=== PATIENT | male | born 1985 | race African-American/Black ===

== ENCOUNTER 2017-02-04 16:00 | Observation (INO) | payer MEDICAID ==
[~2017-02-04] VITALS: Ht 167.6 cm; Wt 84.9 kg
[2017-02-04] MEDS ORDERED: ASPIRIN 81 MG TABLET CHEW PO ONE (16:30)
[2017-02-04] MEDS ORDERED: KETOROLAC 30 MG/1 ML IM ONE (16:30)
[2017-02-04 16:57] LABS: HEMATOCRIT 44.3 % (39.2-51.8); HEMOGLOBIN 14.9 g/dL (13.7-18.0); WHITE BLOOD COUNT 6.6 x10^3/uL (3.4-10)
[2017-02-04 17:10] LABS: IS PT STATUS REG ER OR PRE ER? YES
[2017-02-04] MEDS ORDERED: ARIP10TA33 PO (17:20)
[2017-02-04] MEDS ORDERED: DIVA500T2 PO (17:20)
[2017-02-04 17:23] LABS: ASPARTATE AMINO TRANSFERASE 20 U/L (15-37); BLOOD UREA NITROGEN 12 mg/dL (7-18)
[2017-02-04 17:29] LABS: ACETAMINOPHEN < 2 mcg/mL (10-30)
[2017-02-04] MEDS ORDERED: KETOROLAC 30 MG/1 ML ONE (17:42)
[2017-02-04] MEDS ORDERED: ASPIRIN 81 MG TABLET CHEW ONE (17:42)
[2017-02-04] MEDS ORDERED: ACETAMINOPHEN 325 MG TABLET PO PRN (18:30)
[2017-02-04] MEDS ORDERED: LORazepam 1MG TABLET PO PRN (18:30)
[2017-02-04] MEDS ORDERED: ARIPIPRAZOLE 15 MG TABLET PO SCH (18:30)
[2017-02-04] MEDS ORDERED: ONDANSETRON ODT 4 MG PO PRN (18:30)
[2017-02-04] MEDS ORDERED: DIVALPROEX 500 MG TAB.ER.24H PO SCH (18:30)
[2017-02-04] MEDS ORDERED: ZIPRASIDONE 20 MG INJ IM PRN (18:30)
[2017-02-04 18:49] LABS: DAU SCREEN DISCLAIMER
[2017-02-04 19:40] VITALS: BP 102/63
[2017-02-04] MEDS ORDERED: ZIPRASIDONE 20MG CAPSULE PO SCH (21:00)
[2017-02-05 07:52] VITALS: BP 110/73
[2017-02-05] MEDS ORDERED: DIVALPROEX 500 MG TABLET.DR PO SCH (09:00)
[2017-02-05] MEDS ORDERED: ARIPIPRAZOLE 10 MG TABLET PO SCH (09:00)
[2017-02-05 18:55] VITALS: BP 122/80
[2017-02-06 07:30] VITALS: BP 112/78
[2017-02-06 19:04] VITALS: BP 122/79
== END 2017-02-06 19:37 ==
LOC: ED 17:13 → EDIP 17:14 → ED 17:36 → 3E 19:30
PROVIDERS: ADMIT Internal Medicine; ATTEND Internal Medicine
DX: R45.851 Suicidal ideations (principal); F23 Brief psychotic disorder; R44.0 Auditory hallucinations; G89.29 Other chronic pain; Z91.5 Personal history of self-harm
CPT/HCPCS: 36415; 71020; 80053; 80307; 80329; 83880; 84484; 85025; 93005; 99285; G0378; G0479; G0480